=== PATIENT | male | born 1980 | race Caucasian/White ===

== ENCOUNTER → 2025-01-30 09:24 | Outpatient (REF) | payer OTHER, SELFPAY | LOC: RCS 09:24 | PROVIDERS: ATTENDING PHYSICIAN Nurse Practitioner Family | DX: Z13.6 Encounter for screening for cardiovascular disorders (principal); Z82.49 Family history of ischemic heart disease and other diseases of the circulatory system; R06.02 Shortness of breath; R53.83 Other fatigue | CPT/HCPCS: 93017; 93306 ==